=== PATIENT | female | born 1960 | race Caucasian/White ===

== ENCOUNTER 2017-07-05 06:40 | Day surgery (SDC) | payer MEDICARE, MEDICAID ==
[~2017-07-05 06:40] MED LIST: Lactated Ringers 1,000 ML IV SCH; Lidocaine 2% 5 ML SDV ONE; Midazolam 1 MG/ML 2 ML SDV ONE; Propofol 200 MG/20 ML SDV ONE; fentaNYL 100 MCG/2 ML SDV ONE
[2017-07-05] MEDS ORDERED: Ondansetron 4 MG/2 ML SDV ONE (07:26)
--- NOTE | 2017-07-05 07:38 | PCM.PREANE ---
Preanesthetic Assessment - Anesthesia/Transfusion/Family Hx Anesthesia History: Prior Anesthesia Without Reaction Family History of Anesthesia Reaction: No Transfusion History: No Prior Transfusion(s) Intubation History: Unknown - Review of Systems General: No Symptoms Pulmonary: No Symptoms Cardiovascular: No Symptoms Gastrointestinal: Constipation Neurological: No Symptoms Other: Reports: None - Physical Assessment O2 Sat by Pulse Oximetry: 95 Respiratory Rate: 16 Vital Signs: Last Vital Signs Temp 36.1 C 07/05/17 06:49 Pulse 89 07/05/17 06:49 Resp 16 07/05/17 06:49 BP 126/86 07/05/17 06:49 Pulse Ox 95 07/05/17 06:49 Height: 1.68 m Weight: 84.368 kg ASA Class: 2 Mental Status: Alert & Oriented x3 Airway Class: Mallampati = 2 Dentition: Reports: Dentures (lower), Implants (upper) Thyro-Mental Finger Breadths: 3 Mouth Opening Finger Breadths: 3 ROM/Head Extension: Full Lungs: Clear to Auscultation, Normal Respiratory Effort Cardiovascular: Regular Rate, Regular Rhythm - Allergies Allergies/Adverse Reactions: Allergies Allergy/AdvReac Type Severity Reaction Status Date / Time bee stings Allergy Anaphylactic Uncoded 07/02/17 07:42 Shock - Blood Blood Available: No - Anesthesia Plan Pre-Op Medication Ordered: None - Acknowledgements Anesthesia Type Planned: MAC Pt an Appropriate Candidate for the Planned Anesthesia: Yes Alternatives and Risks of Anesthesia Discussed w Pt/Guardian: Yes Pt/Guardian Understands and Agrees with Anesthesia Plan: Yes PreAnesthesia Questionnaire HEENT History: Reports: Glaucoma, Macular Degeneration Other HEENT History: wears glasses/contacts, has dental inplants and lower denture Cardiovascular History: Reports: High Cholesterol, Other (See Below) Other Cardiovascular History: has Mitral Valve Prolapse Respiratory History: Reports: Asthma Gastrointestinal History: Reports: Chronic Constipation, GERD Genitourinary History: Reports: None 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: Musculoskeletal History: Reports: Arthritis, Fracture Other Musculoskeletal History: chronic pain, hx of fx finger and ankle Neurological History: Reports: Concussion, Head Trauma, MS, Neuropathy, Peripheral Psychiatric History: Reports: ADHD, Anxiety, Other (See Below) (affective disorder) Endocrine/Metabolic History: Reports: Hypothyroidism, Obesity/BMI 30+ Hematologic History: Reports: None Immunologic History: Reports: None Oncologic (Cancer) History: Reports: Cervix Dermatologic History: Reports: None - Infectious Disease History Infectious Disease History: Reports: Chicken Pox, Mumps - Past Surgical History Head Surgeries/Procedures: Reports: None HEENT Surgical History: Reports: Oral Surgery Other HEENT Surgeries/Procedures: dental implants Cardiovascular Surgical History: Reports: Other (See Below) Other Cardiovascular Surgeries/Procedures: Ablation GI Surgical History: Reports: Colonoscopy Female Surgical History: Reports: Breast Biopsy, Hysterectomy, Salpingo- Oophorectomy, Other (See Below) Other Female Surgeries/Procedures: hx of cervical cancer Endocrine Surgical History: Reports: Thyroidectomy Other Oncologic Surgeries/Procedures: hysterectomy, BSO - SUBSTANCE USE Smoking Status *Q: Never Smoker Recreational Drug Use History: No - HOME MEDS Home Medications: Home Meds Levothyroxine Sodium 88 mcg PO DAILY 03/24/15 [History] Vilazodone [Viibryd] 40 mg PO DAILY 03/24/15 [History] Dextroamphetamine/Amphetamine [Adderall 20 mg Tablet] 20 mg PO TID 03/22/16 [ History] Gabapentin [Neurontin] 300 mg PO TID 03/22/16 [History] Amino Acids [Amino Acid] 3 tab PO DAILY 06/30/17 [History] Budesonide/Formoterol Fumarate [Symbicort 160-4.5 Mcg Inhaler] 1 inhalation INH BID 06/30/17 [History] Cinnamon Bark [Cinnamon] 500 mg PO DAILY 06/30/17 [History] Docusate Calcium [Stool Softener] 1 tab PO DAILY 06/30/17 [History] EPINEPHrine [Epipen] 1 injection SUBCUT ASDIRECTED PRN 06/30/17 [History] Esomeprazole [NexIUM] 40 mg PO DAILY 06/30/17 [History] Garlic 1 tab PO DAILY 06/30/17 [History] Grape Seed Extract [Grape Seed] 1 tab PO DAILY 06/30/17 [History] Multivitamin [Multivitamins] 1 tab PO DAILY 06/30/17 [History] Potassium Chloride 10 meq PO DAILY 06/30/17 [History] Rosuvastatin Calcium 5 mg PO DAILY 06/30/17 [History] Ubidecarenone [Co Q-10] 200 mg PO DAILY 06/30/17 [History] Vit A/C/E AC/Znox/Cupric Oxide [Eye Vitamin-Minerals Tablet] 1 tab PO BID [History] Vitamin K2 100 mcg PO DAILY 06/30/17 [History] - CURRENT (IN HOUSE) MEDS Current Meds: Current Medications Lactated Ringer's (Ringers, Lactated) 1,000 mls @ 125 mls/hr IV ASDIRECTED CASEY Discontinued Medications Fentanyl (Sublimaze) Confirm Administered Dose 100 mcg .ROUTE .STK-MED ONE Stop: 07/05/17 06:28 Lidocaine (Xylocaine-Mpf 2%) Confirm Administered Dose 5 ml .ROUTE .STK-MED ONE Stop: 07/05/17 06:28 Midazolam HCl (Versed 1 Mg/Ml) Confirm Administered Dose 2 mg .ROUTE .STK-MED ONE Stop: 07/05/17 06:28 Ondansetron HCl (Zofran) Confirm Administered Dose 4 mg .ROUTE .STK-MED ONE Stop: 07/05/17 07:27 Propofol (Diprivan 20 Ml) Confirm Administered Dose 400 mg .ROUTE .STK-MED ONE Stop: 07/05/17 06:28 Propofol (Diprivan 20 Ml) Confirm Administered Dose 200 mg .ROUTE .STK-MED ONE Stop: 07/05/17 06:32
--- NOTE | 2017-07-05 08:36 | PCM.OPNOTE ---
- General Post-Op/Procedure Note Date of Surgery/Procedure: 07/05/17 Operative Procedure(s): Colonoscopy Pre Op Diagnosis: Desire for colorectal cancer screening Post-Op Diagnosis: No evidence of neoplasia Anesthesia Technique: MAC (ASA II) Primary Surgeon: Jerome Valentine Condition: Good Free Text/Narrative:: Dictation [id number] CPT CODE 49588
[2017-07-05] MEDS ORDERED: Lactated Ringers 1,000 ML IV SCH (08:45)
[2017-07-05 09:03] VITALS: BP 130/64
--- NOTE | 2017-07-05 09:18 | OR ---
SURGEON: Jerome Valentine M.D. DATE OF PROCEDURE: 07/05/2017 OPERATION PERFORMED: Colonoscopy. ANESTHESIA: MAC. ASA CLASSIFICATION: II. PREOPERATIVE DIAGNOSIS: Desire for colorectal cancer screening. POSTOPERATIVE DIAGNOSIS: No evidence of neoplasia. DESCRIPTION OF PROCEDURE: The patient was taken to the endoscopy room, positioned on the endoscopy table in the left lateral decubitus position. Time-out was called for appropriate identification of the patient and procedure. Monitored anesthesia care was provided. The colonoscope was inserted into the rectum and advanced with moderate difficulty to the cecum where the colonoscope was retroflexed to visualize the ascending colon from below. The colonoscope was then straightened and slowly withdrawn. The cecum, ascending colon, hepatic flexure, transverse colon, splenic flexure, descending colon, sigmoid colon, and rectum were very well visualized. No tumors, polyps, diverticula, or angiodysplastic changes were noted. There was no evidence of inflammatory bowel disease. Once the colonoscope was withdrawn to the rectum, it was retroflexed to visualize the anal orifice from above. Again, no tumors or polyps were seen. There were no acute hemorrhoidal changes. The colonoscope was straightened, the rectum aspirated, and the colonoscope removed. The patient tolerated the procedure well and was taken to recovery room in stable condition. KATY / DAVID /[id number]
== END 2017-07-05 09:06 | disposition home or self-care (01) ==
LOC: MW.SDS 06:40
PROVIDERS: ATTEND Surgery
DX: Z12.11 Encounter for screening for malignant neoplasm of colon (principal); F90.9 Attention-deficit hyperactivity disorder, unspecified type; I34.1 Nonrheumatic mitral (valve) prolapse; E78.00 Pure hypercholesterolemia, unspecified; J45.909 Unspecified asthma, uncomplicated; K59.09 Other constipation; K21.9 Gastro-esophageal reflux disease without esophagitis; M19.90 Unspecified osteoarthritis, unspecified site; F41.9 Anxiety disorder, unspecified; E66.9 Obesity, unspecified; E89.0 Postprocedural hypothyroidism; Z85.41 Personal history of malignant neoplasm of cervix uteri; Z68.30 Body mass index [BMI] 30.0-30.9, adult; Z91.030 Bee allergy status; Z79.51 Long term (current) use of inhaled steroids; Z79.899 Other long term (current) drug therapy; Z90.710 Acquired absence of both cervix and uterus; Z90.722 Acquired absence of ovaries, bilateral; Z90.79 Acquired absence of other genital organ(s); Z98.890 Other specified postprocedural states
CPT/HCPCS: G0121; J2250; J2405; J3010; J2704